=== PATIENT | male | born 1955 | race Caucasian/White ===

== ENCOUNTER 2020-06-28 05:58 | Emergency (ER) | payer OTHER ==
[~2020-06-28] VITALS: Ht 180.3 cm; Wt 61.4 kg
[2020-06-28 06:17] VITALS: BP 112/75
[2020-06-28] MEDS ORDERED: PERTUSS(ACELL),DIPH,TET VAC/PF 0.5 ML VIAL IM ONE (06:45)
[2020-06-28] MEDS ORDERED: LIDOCAINE 2%/EPI 1:200,000/PF 20 ML VIAL INJ ONE (06:45)
[2020-06-28] MEDS ORDERED: ACETAMINOPHEN 500 MG TABLET PO ONE (07:15)
[2020-06-28] MEDS ORDERED: IBUPROFEN 600 MG TABLET PO ONE (08:00)
== END 2020-06-28 08:19 | disposition home or self-care (01) ==
LOC: EMS 06:02
DX: S06.0X9A Concussion with loss of consciousness of unspecified duration, initial encounter (principal); S01.411A Laceration without foreign body of right cheek and temporomandibular area, initial encounter; S01.311A Laceration without foreign body of right ear, initial encounter; S01.21XA Laceration without foreign body of nose, initial encounter; Z88.0 Allergy status to penicillin; Y04.2XXA Assault by strike against or bumped into by another person, initial encounter; Y93.89 Activity, other specified; Y92.89 Other specified places as the place of occurrence of the external cause; Y99.8 Other external cause status
CPT/HCPCS: 70450; 72125